=== PATIENT | male | born 1980 | race Caucasian/White ===

== ENCOUNTER 2025-01-13 13:19 | Emergency (ER) | payer OTHER, SELFPAY ==
[2025-01-13] VITALS (11 sets, daily range): BP systolic 125–129; BP diastolic 67–70; PULSE 71–81; RESP 11–19; TEMP 36.6; O2SAT 91–97
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
[2025-01-13] MEDS: Ketorolac 15 MG/ML VIAL IVP (14:27)
[2025-01-13] MEDS: fentaNYL 100 MCG/2 ML VIAL 50 MCG IVP (14:46)
[2025-01-13] MEDS: oxyCODONE 5 MG TAB 25 MG PO (15:05)
[2025-01-13] MEDS: Ondansetron 4 MG/2 ML VIAL IVP ×2 (15:05→15:43)
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
[2025-01-13] MEDS: Ondansetron O.D.T. 4 MG TABEF, 3 TABS/BTL PO (15:17)
== END 2025-01-13 16:17 | disposition home or self-care (01) ==
LOC: ER 15:06
PROVIDERS: Emergency Provider Physician Assistant; PCP Registered Nurse
DX: S42.021A Displaced fracture of shaft of right clavicle, initial encounter for closed fracture; V18.0XXA Pedal cycle driver injured in noncollision transport accident in nontraffic accident, initial encounter
CPT/HCPCS: 29105; 96374; 96375; 99284; 71046; 71100; 73000; 73030; J1885; J2405; J3010